=== PATIENT | male | born 1955 | race Caucasian/White ===

== ENCOUNTER 2024-05-17 04:46 | Inpatient (IN) | payer OTHER ==
[2024-05-17 05:23] VITALS: BMI 27.4
[2024-05-17] MEDS ORDERED: BENZOCAINE/MENTHOL (CHLORASEPTIC ) LOZENGE MM PRN (05:50)
[2024-05-17] MEDS ORDERED: NALOXONE HCL 0.4 MG/ML VIAL IM PRN (05:50)
[2024-05-17] MEDS ORDERED: POLYETHYLENE GLYCOL (HEALTHYLAX) 3350 17 GM PACKET PO PRN (05:50)
[2024-05-17] MEDS ORDERED: IBUPROFEN 400 MG TABLET (FP) PO PRN (05:50)
[2024-05-17] MEDS ORDERED: BENZONATATE 200 MG CAPSULE PO PRN (05:50)
[2024-05-17] MEDS ORDERED: guaiFENesin 600 MG TABLET.ER (FP) PO PRN (05:50)
[2024-05-17] MEDS ORDERED: NICOTINE POLACRILEX 4 MG GUM BUC PRN (05:50)
[2024-05-17] MEDS ORDERED: LOPERAMIDE HCL 2 MG CAPSULE PO PRN (05:50)
[2024-05-17] MEDS ORDERED: NALOXONE (NARCAN) HCL 4 MG/0.1 ML SPRAY NS PRN (05:50)
[2024-05-17] MEDS ORDERED: DICYCLOMINE HCL 10 MG CAPSULE PO PRN (05:50)
[2024-05-17] MEDS ORDERED: ONDANSETRON *ODT* 4 MG TABLET SL PRN (05:50)
[2024-05-17] MEDS ORDERED: MAGNESIUM HYDROX 2400MG/30ML ORAL SUSPENSION 30 ML CUP PO PRN (05:50)
[2024-05-17] MEDS ORDERED: BISMUTH SUBSALICYLATE 524 MG/30 ML PO PRN (05:50)
[2024-05-17] MEDS: NICOTINE 21 MG/24 HOURS TOPICAL PATCH TD SCH (09:12)
[2024-05-17] MEDS: ACETAMINOPHEN 325 MG TABLET (FP) PO PRN (09:12)
[2024-05-17] MEDS: PRENATAL VITAMINS W/ FOLIC ACID TABLET (FP) PO SCH (09:12)
[2024-05-17 11:28] LABS: CHLORIDE 102 mmol/L (98-107); POTASSIUM 4.4 mmol/L (3.5-5.1); SODIUM 135 mmol/L (136-145)
[2024-05-17 11:29] LABS: HEMATOCRIT 41.2 % (35.4-49); HEMOGLOBIN 13.9 GM/dL (11.7-16.9); MCH 30.3 pg (25.7-33.7); MCHC 33.8 g/dl (32.0-35.9); MEAN CELL VOLUME 89.8 fl (80-96); MEAN PLT VOLUME 8.4 fl (7.5-11.1); PLATELET COUNT 240 10^3/uL (134-434); RBC 4.59 M/mm3 (4.00-5.60); WHITE BLOOD COUNT 11.8 K/mm3 (4.0-10.0)
[2024-05-17 11:37] LABS: ALBUMIN 3.6 g/dl (3.4-5.0); ANION GAP 8 mmol/L (4-13); BLOOD UREA NITROGEN 10.6 mg/dL (7-18); CALCIUM 9.2 mg/dL (8.5-10.1); CO2 24 mmol/L (21-32); GLUCOSE,RANDOM 123 mg/dL (74-106)
[2024-05-17 11:40] LABS: SGOT/AST 34 U/L (15-37); SGPT/ALT 26 U/L (13-61)
[2024-05-17 11:41] LABS: BILIRUBIN,TOTAL 0.3 mg/dL (0.2-1)
[2024-05-17 11:42] LABS: ALK PHOS 99 U/L (45-117); TOT PROT 6.7 g/dl (6.4-8.2)
[2024-05-17] MEDS: ALBUTEROL SO4 HFA INHALER IH PRN (15:01)
[2024-05-17] MEDS: diazePAM 5 MG TABLET PO SCH (22:06)
[2024-05-17] MEDS: MELATONIN 5 MG TABLETS PO SCH (22:07)
[2024-05-17] MEDS: traZODone HCL 50 MG TABLET (FP) PO SCH (22:07)
[2024-05-17] MEDS: THIAMINE 100 MG TABLET PO SCH (22:07)
[2024-05-18] MEDS: MAG HYDROX/AL HYDROX/SIMETH 30 ML UNIT-DOSE CUP PO PRN (19:33)
[2024-05-18] MEDS: FAMOTIDINE 20 MG TABLET PO PRN (22:07)
[2024-05-19] MEDS: diazePAM 5 MG TABLET PO SCH (05:16)
[2024-05-19] MEDS: ENALAPRIL MALEATE 10 MG TABLET PO SCH (14:00)
[2024-05-19] MEDS: METOPROLOL TARTRATE 25 MG TABLET (FP) PO SCH (14:33)
[2024-05-19] MEDS: diazePAM 5 MG TABLET PO PRN (19:28)
[2024-05-19] MEDS: IBUPROFEN 600 MG TABLET (FP) PO PRN (19:28)
[2024-05-19] MEDS: ATORVASTATIN CA 20 MG TABLET (FP) PO SCH (21:51)
[2024-05-20] MEDS: FLUTICASONE PROP 0.05% 16 GM NASAL SPRAY NS SCH (00:07)
[2024-05-20] MEDS: diazePAM 5 MG TABLET PO SCH (05:35)
[2024-05-20 13:49] LABS: HEMATOCRIT 41.8 % (35.4-49); HEMOGLOBIN 13.8 GM/dL (11.7-16.9); MCH 30.2 pg (25.7-33.7); MCHC 33.1 g/dl (32.0-35.9); MEAN CELL VOLUME 91.4 fl (80-96); MEAN PLT VOLUME 9.4 fl (7.5-11.1); PLATELET COUNT 196 10^3/uL (134-434); RBC 4.58 M/mm3 (4.00-5.60); RDW 14.2 % (11.9-15.9); WHITE BLOOD COUNT 10.8 K/mm3 (4.0-10.0)
[2024-05-20] MEDS: BENZOCAINE 20 % GEL TUBE MM PRN (19:39)
[2024-05-21] MEDS: diazePAM 5 MG TABLET PO ONE (05:46)
[2024-05-21 08:43] VITALS: BP 114/60; PULSE 62; RESP 18; TEMP 97.8
== END 2024-05-21 10:08 | disposition home or self-care (01) | DRG 897 ==
LOC: YASAS 04:46 → Y6N 06:00
PROVIDERS: ADMIT Allergy & Immunology; ATTEND Surgery
PROC: HZ2ZZZZ Detoxification Services for Substance Abuse Treatment (ICD-10-PCS; principal; 2024-05-17)
DX: F10.230 Alcohol dependence with withdrawal, uncomplicated (principal); F17.210 Nicotine dependence, cigarettes, uncomplicated; F19.24 Other psychoactive substance dependence with psychoactive substance-induced mood disorder; G47.00 Insomnia, unspecified; E78.5 Hyperlipidemia, unspecified; I10 Essential (primary) hypertension; I48.91 Unspecified atrial fibrillation; J44.9 Chronic obstructive pulmonary disease, unspecified; K21.9 Gastro-esophageal reflux disease without esophagitis; K76.0 Fatty (change of) liver, not elsewhere classified; N40.1 Benign prostatic hyperplasia with lower urinary tract symptoms; R39.11 Hesitancy of micturition
CPT/HCPCS: 0241U-QW; 36415; 80053; 80305; 80307; 82947; 83036; 85027; 86780; 93005; 93010

== ENCOUNTER 2024-07-14 17:18 | Emergency (ER) | payer OTHER ==
[2024-07-14 18:01] VITALS: RESP 18; TEMP 97.9; BMI 27.3
[2024-07-14 19:18] LABS: BASO % 0.2 % (0-2.0); EOS % 0.2 % (0-4.5); HEMATOCRIT 40.1 % (35.4-49); HEMOGLOBIN 13.4 GM/dL (11.7-16.9); LYMPH % 11.2 % (8-40); MCH 29.8 pg (25.7-33.7); MCHC 33.4 g/dl (32.0-35.9); MEAN CELL VOLUME 89.4 fl (80-96); MEAN PLT VOLUME 7.9 fl (7.5-11.1); MONO % 4.9 % (3.8-10.2); NEUT % 83.5 % (42.8-82.8); PLATELET COUNT 203 10^3/uL (134-434); RBC 4.49 M/mm3 (4.00-5.60); RDW 13.9 % (11.9-15.9); WHITE BLOOD COUNT 12.6 K/mm3 (4.0-10.0)
[2024-07-14 19:35] LABS: INR 0.94 (0.83-1.09); PROTHROMBIN TIME (PATIENT) 10.6 SEC (9.7-13.0)
[2024-07-14 19:38] LABS: ACTIVATED PTT 28.5 SECONDS (25.2-36.5)
[2024-07-14 19:49] VITALS: BP 111/64; PULSE 64
[2024-07-14 20:26] LABS: CALCIUM 9.1 mg/dL (8.5-10.1)
[2024-07-14 20:27] LABS: ALBUMIN 3.5 g/dl (3.4-5.0); BLOOD UREA NITROGEN 23.4 mg/dL (7-18)
[2024-07-14 20:30] LABS: CREATININE 1.2 mg/dL (0.55-1.3); PHOSPHOROUS 3.3 mg/dL (2.5-4.9)
[2024-07-14 20:31] LABS: BILIRUBIN,TOTAL 0.5 mg/dL (0.2-1); TOT PROT 6.2 g/dl (6.4-8.2)
[2024-07-14] MEDS ORDERED: ACETAMINOPHEN 325 MG TABLET (FP) ONE (20:53)
[2024-07-14] MEDS: ACETAMINOPHEN 325 MG TABLET (FP) PO ONE (21:04)
== END 2024-07-14 21:04 | disposition home or self-care (01) ==
LOC: JER 17:18
DX: S60.222A Contusion of left hand, initial encounter (principal); R41.0 Disorientation, unspecified; W22.8XXA Striking against or struck by other objects, initial encounter
CPT/HCPCS: 36415; 70450-TC; 80053; 83735; 84100; 85025; 85610; 85730; 93005; 93010; 99285-25

== ENCOUNTER 2024-07-16 12:41 | Emergency (ER) | payer OTHER ==
[2024-07-16] MEDS ORDERED: ALBUTEROL SO4 2.5/IPRATROPIUM 0.5 INH SOL 3 ML VIAL.NEB. NEB ONE (12:49)
[2024-07-16 13:20] VITALS: BP 142/82; PULSE 93; RESP 21; TEMP 98; BMI 27.3
[2024-07-16] MEDS: ALBUTEROL SO4 2.5/IPRATROPIUM 0.5 INH SOL 3 ML VIAL.NEB. NEB ONE ×2 (14:15→14:16)
== END 2024-07-16 14:34 | disposition home or self-care (01) ==
LOC: JER 12:41
PROC: 3E0F7GC Introduction of Other Therapeutic Substance into Respiratory Tract, Via Natural or Artificial Opening (ICD-10-PCS; principal; 2024-07-16)
DX: J44.1 Chronic obstructive pulmonary disease with (acute) exacerbation (principal)
CPT/HCPCS: 93005; 93010; 99284-25

== ENCOUNTER 2024-07-21 15:39 | Emergency (ER) | payer OTHER ==
[2024-07-21 15:55] VITALS: BP 158/88; PULSE 90; RESP 20; TEMP 98; BMI 27.3
[2024-07-21] MEDS: ALBUTEROL SO4 2.5/IPRATROPIUM 0.5 INH SOL 3 ML VIAL.NEB. NEB SCH (16:54)
[2024-07-21 17:13] LABS: BASO % 0.7 % (0-2.0); EOS % 1.6 % (0-4.5); HEMATOCRIT 40.5 % (35.4-49); HEMOGLOBIN 13.9 GM/dL (11.7-16.9); LYMPH % 25.3 % (8-40); MCH 30.7 pg (25.7-33.7); MCHC 34.4 g/dl (32.0-35.9); MEAN CELL VOLUME 89.3 fl (80-96); MEAN PLT VOLUME 8.1 fl (7.5-11.1); NEUT % 66.4 % (42.8-82.8); PLATELET COUNT 218 10^3/uL (134-434); RBC 4.54 M/mm3 (4.00-5.60); WHITE BLOOD COUNT 12.1 K/mm3 (4.0-10.0)
[2024-07-21 17:17] LABS: CALCIUM 9.2 mg/dL (8.5-10.1); POTASSIUM 3.9 mmol/L (3.5-5.1)
[2024-07-21 17:18] LABS: ALBUMIN 3.8 g/dl (3.4-5.0)
[2024-07-21 17:19] LABS: BLOOD UREA NITROGEN 21.3 mg/dL (7-18); MAGNESIUM 1.9 mg/dL (1.8-2.4)
[2024-07-21 17:21] LABS: CREATININE 1.3 mg/dL (0.55-1.3)
[2024-07-21 17:22] LABS: BILIRUBIN,TOTAL 0.3 mg/dL (0.2-1); TOT PROT 6.6 g/dl (6.4-8.2)
== END 2024-07-21 18:48 | disposition home or self-care (01) ==
LOC: JER 15:39
PROC: 3E0F7GC Introduction of Other Therapeutic Substance into Respiratory Tract, Via Natural or Artificial Opening (ICD-10-PCS; principal; 2024-07-21)
DX: R05.9 Cough, unspecified (principal); R06.02 Shortness of breath; B97.4 Respiratory syncytial virus as the cause of diseases classified elsewhere; Z20.822 Contact with and (suspected) exposure to COVID-19
CPT/HCPCS: 0241U-QW; 36415; 71046-TC-FY; 80053; 83735; 83880; 84484; 85025; 93005; 93010; 94640; 99285-25